=== PATIENT | male | born 1995 | race Two or more races ===

== ENCOUNTER 2024-12-25 00:22 | Emergency (ER) | payer MEDICAID, OTHER ==
[~2024-12-25] VITALS: Ht 188 cm; Wt 127.0 kg
[2024-12-25 00:22] VITALS: BP 163/97; PULSE 102; RESP 16; O2SAT 98
[2024-12-25] MEDS ORDERED: LIDOCAINE VISCOUS 2% 15ML UD PO ONE (00:45)
[2024-12-25] MEDS ORDERED: MAALOX PLUS or MAALOX 30 ML PO ONE (00:45)
--- NOTE | 2024-12-25 02:47 | ED.PDOC ---
Eye-HPI HPI Comments This patient is a 29-year-old male who arrives to the ED today via EMS with the complaints of upper chest pain/throat concerns. Patient states that he has a tightness and a burning sensation to the area. Patient denies any fever nausea or vomiting. Patient was hypertensive and tachycardic at arrival. Patient has a history of methamphetamine use. Chief Complaint: Sore Throat Time Seen by MD: 00:25 Reviewed Notes: Nurses Notes, Water Server Notes Information Source: Patient, Emergency Med Personnel Mode of Arrival: EMS Timing: Hours Duration: Since onset Quality: Pain, FB sensation Onset: Spontaneous Past Medical History PAST MEDICAL HISTORY: Denies Surgical History: Denies all surgeries Family History Family History: Reviewed,noncontributory to illness, No family hx of Cancer, No family hx of DM, No family hx of Heart akua, No family hx of HTN, No family hx ofKidney akua, No family hx of Liver akua, No family hx of Lung akua, No family hx of Stroke Social History Smoker: Non-Smoker Alcohol: Denies ETOH Use Drugs: Denies Drug Use Lives In: Home Constitutional: denies: chills, diaphoresis, fatigue, fever, malaise, sweats, weakness, others EENTM: reports: throat pain; denies: blurred vision, double vision, ear bleeding, ear discharge, ear drainage, ear pain, ear ringing, eye pain, eye redness, hearing loss, mouth pain, mouth swelling, nasal discharge, nose bleeding, nose congestion, nose pain, photophobia, tearing, throat swelling, voice changes, others Respiratory: denies: cough, hemoptysis, orthopnea, SOB at rest, shortness of breath, SOB with excertion, stridor, wheezing, others Cardiovascular: reports: chest pain (Upper); denies: dizzy spells, diaphoresis, Dyspnea on exertion, edema, irregular heart beat, left arm pain, lightheadedness, palpitations, PND, syncope, others Gastrointestinal: denies: abdomen distended, abdominal pain, blood streaked bowels, constipated, diarrhea, dysphagia, difficulty swallowing, hematemesis, melena, nausea, poor appetite, poor fluid intake, rectal bleeding, rectal pain, vomiting, others Genitourinary: denies: burning, dysuria, flank pain, frequency, hematuria, incontinence, penile discharge, penile sore, pain, testicle pain, testicle swelling, urgency, others Neurological: denies: dizziness, fainting, headache, left sided numbness, left sided weakness, numbness, paresthesia, pre-existing deficit, right sided numbness, right sided weakness, seizure, speech problems, tingling, tremors, weakness, others Musculoskeletal: denies: back pain, gout, joint pain, joint swelling, muscle pain, muscle stiffness, neck pain, others Integumetry: denies: bruises, change in color, change in hair/nails, dryness, laceration, lesions, lumps, rash, wounds, others Allergic/Immunocompromised: denies: Difficulty Healing, Frequent Infections, Hives, Itching, others Hematologic/Lymphatic: denies: anemia, blood clots, easy bleeding, easy bruising, swollen glands, others Endocrine: denies: excessive hunger, excessive sweating, excessive thirst, excessive urination, flushing, intolerance to cold, intolerance to heat, unexplained weight gain, unexplained weight loss, others Psychiatric: denies: anxiety, bipolar disorder, depression, hopeless, panic disorder, schizophrenia, sleepless, suicidal, others Physical Exam General Appearance: Mild Distress (Moderate distress due to upper chest/throat pain concerns.), Normal HEENT: Normal ENT Inspection, Pharynx Normal, TMs Normal, Other (Unremarkable oropharyngeal evaluation. No signs of edema or airway compromise. No exudate noted.) Neck: Other (Unremarkable neck evaluation. No signs of masses. Trachea is midline.) Respiratory: Lungs Clear, No Accessory Muscle Use, No Respiratory Distress, Normal Breath Sounds, Other (Patient complains of pain in his upper sternal region, but unable to elicit any additional pain on palpation.) Cardiovascular: No Edema, No JVD, No Murmur, No Gallop, Normal Peripheral Pulses, Regular Rate/Rhythm Breast Exam: Deferred Gastrointestinal: No Organomegaly, Non Tender, No Pulsatile Mass, Normal Bowel Sounds, Soft Genitalia: Deferred Pelvic: Deferred Rectal: Deferred Extremities: No calf tenderness, Normal capillary refill, Normal inspection, Normal range of motion, Non-tender, No pedal edema Neurologic: Alert, No Motor Deficits, Normal Affect, Normal Mood, No Sensory Deficits Cerebellar Function: Normal Reflexes: Normal Skin: Dry, Normal Color, Warm Lymphatic: No Adenopathy Was a procedure done? Was a procedure done?: No EENT DIFF Eye: N/A Sore Throat: Viral Pharyngitis, URI, Other (Pneumonia, esophageal mass) X-Ray, Labs, Meds, VS Vital Signs Date Time Temp Pulse Resp B/P (MAP) Pulse Ox O2 Delivery O2 Flow Rate FiO2 12/25/24 00:22 98.1 102 16 163/97 (119) 98 X-Ray, Labs, Meds, VS Comment Imaging attempted multiple times to locate the patient, but it appears the patient has eloped from the facility. Time of 1ST Reevaluation: 02:46 Reevaluation 1ST: Unchanged Consultation: PCP Patient Education/Counseling: Diagnosis, Treatment Family Education/Counseling: Diagnosis, Treatment Departure 1 Departure Time of Disposition: 02:46 Impression: Primary Impression: Throat pain Disposition: 07 LEFT AWOL/ELOPED Condition: Fair Discharged With: Self Critical Care Note Critical Care Time?: No Stability Stability form required: No Heart Score Heart Score: Heart Score Response (Comments) Value History N/A 0 EKG N/A 0 Age N/A 0 Risk Factors N/A 0 Troponin N/A 0 Total 0 AILEEN ESPOSITO PAC Dec 25, 2024 02:47
== END 2024-12-25 02:47 | disposition left against medical advice (07) ==
LOC: ER 00:22 → EDBD 00:22 → ER 02:47
DX: R07.0 Pain in throat (principal)

== ENCOUNTER 2025-09-03 17:25 | Emergency (ER) | payer MEDICAID ==
[~2025-09-03] VITALS: Ht 185.4 cm; Wt 59.5 kg
[2025-09-03 18:58] LABS: Hematocrit 48.5 % (41.0-53.0); Hemoglobin 16.4 g/dL (13.5-17.5); Mean Corpuscular Hemoglobin 28.4 pg (28.0-32.0); Mean Corpuscular Volume 84.3 fL (80.0-100.0); Nucleated Red Blood Cells % 0.0 %
[2025-09-03 19:08] LABS: Alanine Aminotransferase 13 U/L (7-40); Anion Gap 10 (5-15); BUN/Creatinine Ratio 17.5 (10.0-20.0); Blood Urea Nitrogen 17 mg/dL (9-23); Calcium 10.4 mg/dL (8.7-10.4); Carbon Dioxide 23 mmol/L (20-31); Chloride 105 mmol/L (98-107); Glucose 97 mg/dL (74-106); Lipase 26 U/L (12-53); Potassium 4.4 mmol/L (3.5-5.1); Sodium 138 mmol/L (136-145); Total Protein 7.9 g/dL (5.7-8.2)
[2025-09-03 19:09] LABS: Bilirubin, Total 0.6 mg/dL (0.2-1.0)
[2025-09-03 19:18] LABS: Albumin 5.0 g/dL (3.2-4.8); Alkaline Phosphatase 135 U/L (46-116)
[2025-09-03] MEDS: SODIUM CHLORIDE 0.9% 1,000 ML IV ONE (19:19)
--- NOTE | 2025-09-03 19:20 | DVH ---
Exam: CT CT AB PEL WO CON-NO ORAL OR IV History: abd pain diarrhea Comparison Study: None TECHNIQUE: Multidetector CT of the abdomen AND PELVIS without contrast. Axial, coronal and sagittal multiplanar reformats were obtained from the axial data set by the technologist. Radiation Dose Information: CT Dose: CTDI volume is 19.11 mGy. Dose-length product is 1244.31 mGy*cm FINDINGS: The lung bases are clear. Partially visualized heart is unremarkable. Liver, spleen, gallbladder, pancreas and adrenal glands are unremarkable. Kidneys, ureters and urinary bladder are unremarkable. Prostate is unremarkable. Stomach is unremarkable. Small bowel loops unremarkable. Small nonobstructing appendicolith within t he appendix. Otherwise, the appendix is unremarkable. Moderate to large amount of liquid stool and g as within the colon with air-fluid levels within the Distended rectum measuring up to 9.2 x 8.7 cm. Segmental decompression of the distal descending colon/proximal sigmoid may be from normal peristalsi s. No evidence of intraperitoneal free air or free fluid. No evidence of aortic aneurysm. Shotty mesenteric lymph nodes. The soft tissues unremarkable. No evidence of acute osseous abnormalities. IMPRESSION: Moderate to large amount of gas and liquid stool within the colon consistent with diarrheal state wit h air-fluid level within the distended rectum measuring up to 9.2 x 8.7 cm.
[2025-09-03 19:22] LABS: Urine Protein, UAD 1+ (Negative)
--- NOTE | 2025-09-03 19:24 | ED.PDOC ---
GI ASSESSMENT HPI Comments 30-year-old homeless male presents with c/c of nonradiating and nonspecific, lower abdominal pain. He describes pain as cramping in quality. Patient has associated nausea without vomiting and watery-brown diarrhea. At time of assessment, he denies having any current pain alongside any additional associated symptoms. HPI: Poor Historian. 30-year-old male homeless presents to emergency department for two day history of lower abdominal pain cramps like nonspecific. Patient has a associated nausea and brown watery diarrhea. Patient states that currently has no abdomin al pain. Denies any other symptoms. Past Medical History: Denies any Past Surgical History: Denies any No known drug allergy REVIEW OF SYSTEMS: CONSTITUTIONAL: Denies acute: fever, diaphoresis, chills, generalized weakness. HEAD: Denies acute: headache, photophobia Eyes: Denies acute: Double vision, vision loss, eye pain, eye discharge. EARS: Denies acute: tinnitus, hearing loss, ear discharge, ear pain, THROAT: Denies acute: sore throat, swelling, difficulty swallowing , pain with swallowin g, change in voice. NECK: Denies acute: neck pain, neck swelling, stiff neck. HEART: Denies acute : chest pain, palpitations, LUNGS: Denies acute: SOB, wheezing, cough, hemoptysis ABDOMEN: Denies acute: Vomiting, melena , hematemesis, hematochezia SKIN: Denies acute: rash, redness, lesions, itchiness. EXTREMITIES: Denies acute: calf pain, numbness, tingling, weakness, denies pain in extremity. Denies acute: Low back pain. Neuro: Denies acute: focal neurological deficit, motor or sensory focal neurological deficit, tremors, seizure like activity, confusion, dizziness, change in mental status, loss of bowel or bladder function, cauda equina like symptoms. : Denies acute: dysuria, hematuria, flank pain, increase in urinary frequency. PSYCH: Denies acute: hallucination, suicidal ideation, homicidal ideation. PHYSICAL EXAM: General: -----no---acute distress, awake and alert. Head: normocephalic, atraumatic. No raccoon's eyes, no grove sign. Neck: supple, trachea is midline, no swelling. Throat: Normal phonation. Eyes:, no erythema, no purulent discharge, no proptosis, no icterus. Heart: regular rate, regular rhythm, no significant murmur appreciated. Lungs: no apparent respiratory distress, Able to speak in full sentences. No wheezing, no rhonchi, no crackles. No stridors Clear to auscultation bilaterally. Abdomen: non tender to palpation, non distended, soft, no guarding, no rebound, + bowel sounds. Neuro: Awake, Alert, oriented to name, self, situation, follows commands GCS=15. Speech is normal. Skin: no petechia, no purpura, no cyanosis, non-pale, not jaundice. Lower extremities: --no - Pitting edema no deformity, no focal swelling, no calf TTP. Makes eye contact. moves all four extremities. Face: no apparent facial droop. Ambulating in the ED independently. ED COURSE: DISCLAIMER: This medical document was created using an electronic medical record system with voice recognition software and computerized dictation system. Although this document has been carefully reviewed, there might still be some phonetic and typographical errors. Occasional wrong-word or "sound-alike" substitutions may have occurred due to the inherent limitations of voice recognition software. These areas are purely typographical due to imperfections of the software programs and do not reflect any compromise in the patient's medical care. Please read the chart carefully and recognize, using context, where these substitutions have occurred. Chief Complaint: Diarrhea Time Seen by MD: 18:13 Reviewed Notes: Allergies Allergies: Coded Allergies: NO KNOWN ALLERGIES (Unverified , 09/03/25) Home Meds Active Scripts Ciprofloxacin Hcl (Cipro) 500 Mg Tab, 500 MG PO BID for 7 Days, #14 CAP Prov:NORMA QUINTERO DO 09/03/25 Information Source: Patient Mode of Arrival: EMS Past Medical History PAST MEDICAL HISTORY: Denies Surgical History: Denies all surgeries Family History Family History: Reviewed,noncontributory to illness, No family hx of Cancer, No family hx of DM, No family hx of Heart akua, No family hx of HTN, No family hx ofKidney akua, No family hx of Liver akua, No family hx of Lung akua, No family hx of Stroke Social History Smoker: Non-Smoker Alcohol: Denies ETOH Use Drugs: Denies Drug Use Lives In: Home Was a procedure done? Was a procedure done?: No GI differential Dx Differential Diagnosis: Hepatitis, Food Poisoning, Bacterial, Parasitic, Viral, Other (DDX include but not limited to diverticulitis, colitis, gastroenteritis, acute abdomen, SBO, enteritis, constipation, volvulus, appendicitis, Gallbladder disease, choledocolithiasis, ascending cholangitis, pancreatitis, intraAbdominal mass/neoplasm, hepatitis, UTI, pylonephritis, kidney stone, aneurysm, dissection, Inflammatory bowel disease, gastroparesis, ischemic bowel.Food poisoning, bacterial/parasitic/viral etiology, trauma, diabetes DKA,) X-Ray, Labs, Meds, VS Vital Signs Date Time Temp Pulse Resp B/P (MAP) Pulse Ox O2 Delivery O2 Flow Rate FiO2 09/03/25 22:24 82 17 98 Room Air* 0 21 09/03/25 20:39 97.2 99 18 141/92 (108) 100 97.2 09/03/25 17:50 98.2 103 16 111/70 96 98.2 Lab Test 09/03/25 18:31 09/03/25 18:21 Range/Units White Blood Count 7.9 4.4-10.8 10^3/uL Red Blood Count 5.76 4.5-5.90 10^6/uL Hemoglobin 16.4 13.5-17.5 g/dL Hematocrit 48.5 41.0-53.0 % Mean Corpuscular Volume 84.3 80.0-100.0 fL Mean Corpuscular Hemoglobin 28.4 28.0-32.0 pg Mean Corpuscular Hemoglobin Concent 33.7 32.0-36.0 g/dL Red Cell Distribution Width 13.8 11.8-14.3 % Platelet Count 329 140-450 10^3/uL Mean Platelet Volume 8.0 6.9-10.8 fL Neutrophils (%) (Auto) 70.9 37.0-80.0 % Lymphocytes (%) (Auto) 12.9 10.0-50.0 % Monocytes (%) (Auto) 14.8 H 0.0-12.0 % Eosinophils (%) (Auto) 1.2 0.0-7.0 % Basophils (%) (Auto) 0.2 0.0-2.0 % Neutrophils # (Auto) 5.6 1.6-8.6 10 ^3/uL Lymphocytes # (Auto) 1.0 0.4-5.4 10 ^3/uL Monocytes # (Auto) 1.2 0-1.3 10 ^3/uL Eosinophils # (Auto) 0.1 0-0.8 10 ^3/uL Basophils # (Auto) 0 0-0.2 10 ^3/uL Nucleated Red Blood Cells 0.0 % Sodium Level 138 136-145 mmol/L Potassium Level 4.4 3.5-5.1 mmol/L Chloride Level 105 98-107 mmol/L Carbon Dioxide Level 23 20-31 mmol/L Anion Gap 10 5-15 Blood Urea Nitrogen 17 9-23 mg/dL Creatinine 0.97 0.700-1.30 mg/dL Glomerular Filtration Rate Calc 107 >90 mL/min BUN/Creatinine Ratio 17.5 10.0-20.0 Serum Glucose 97 74-106 mg/dL Lactic Acid Level 1.0 0.4-2.0 mmol/L Calcium Level 10.4 8.7-10.4 mg/dL Total Bilirubin 0.6 0.2-1.0 mg/dL Aspartate Amino Transferase (AST) 12 L 13-40 U/L Alanine Aminotransferase (ALT) 13 7-40 U/L Alkaline Phosphatase 135 H 46-116 U/L Total Protein 7.9 5.7-8.2 g/dL Albumin 5.0 H 3.2-4.8 g/dL Lipase 26 12-53 U/L Urine Color Yellow Yellow Urine Clarity Clear Clear Urine pH 6.0 5.0-9.0 Urine Specific [place] 1.036 H 1.001-1.035 Urine Protein 1+ H Negative Urine Ketones Trace Negative Urine Blood Negative Negative /uL Urine Nitrite Negative Negative Urine Bilirubin Negative Negative Urine Urobilinogen Normal Negative mg/dL Urine Leukocyte Esterase Negative Negative /uL Urine RBC 1 0 - 3 /hpf Urine Microscopic WBC 1 0-3 /HPF Urine Squamous Epithelial Cells Few <5 /hpf Urine Bacteria Few H None Seen /hpf Urine Hyaline Casts Mod 0 - 2 /lpf Urine Mucus Few None Seen Urine Glucose Normal Normal mg/dL Current Medications Medications (Trade) Dose Ordered Sig/Niles Route Start Time Stop Time Status Last Admin Sodium Chloride 1,000 ml @ 1,000 mls/hr Q1H ONCE IV 09/03/25 18:30 09/03/25 19:29 DC 09/03/25 19:19 [place] [address] Ph: [phone] DIAGNOSTIC IMAGING Diagnostic Imaging Report : [id number] Signed PATIENT: ELAN CATALAN ACCT: [id number] UNIT: [id number] : 1995 LOC: ER ROOM / BED: / AGE / SEX: 30 / M ADM STATUS: REG ER SERVICE 17 ORDERING PHYSICIAN: NORMA QUINTERO DO PROCEDURE(s): ABPL - CT AB PEL WO CON-NO ORAL OR IV REASON: abd pain diarrhea ORDER NUMBER(s): [id number], ACCESSION NUMBER(s): [id number] Exam: CT CT AB PEL WO CON-NO ORAL OR IV History: abd pain diarrhea Comparison Study: None TECHNIQUE: Multidetector CT of the abdomen AND PELVIS without contrast. Axial, coronal and sagittal multiplanar reformats were obtained from the axial data set by the technologist. Radiation Dose Information: CT Dose: CTDI volume is 19.11 mGy. Dose-length product is 1244.31 mGy*cm FINDINGS: The lung bases are clear. Partially visualized heart is unremarkable. Liver, spleen, gallbladder, pancreas and adrenal glands are unremarkable. Kidneys, ureters and urinary bladder are unremarkable. Prostate is unremarkable. Stomach is unremarkable. Small bowel loops unremarkable. Small nonobstructing appendicolith within the appendix. Otherwise, the appendix is unremarkable. Moderate to large amount of liquid stool and gas within the colon with air-fluid levels within the Distended rectum measuring up to 9.2 x 8.7 cm. Segmental decompression of the distal descending colon/proximal sigmoid may be from normal peristalsis. No evidence of intraperitoneal free air or free fluid. No evidence of aortic aneurysm. Shotty mesenteric lymph nodes. The soft tissues unremarkable. No evidence of acute osseous abnormalities. IMPRESSION: Moderate to large amount of gas and liquid stool within the colon consistent with diarrheal state with air-fluid level within the distended rectum measuring up to 9.2 x 8.7 cm. ATED BY: AYSE DOUGLAS DO DICTATED DATE/TIME: 09/03/251916 SIGNED BY: STELLA AYSE Agustin ORNELAS SIGNED DATE/TIME: 09/03/251916 CC: Time of 1ST Reevaluation: 18:13 Reevaluation 1ST: Unchanged Patient Education/Counseling: Diagnosis, Treatment Family Education/Counseling: No Family Present Comments MDM: patient presented with the above HPI.--abdominal pain/diarrhea----workup was initiated. patient was found with the above mentioned diagnosis. the following medications were ordered: please refer to order lists of meds and tests obtained by myself Dr. Quintero. Patient ED course and VS have been stabilized. Patient has been reassessed in the ED and remained in a stable condition. Pertinent incidental findings were discussed with the patient and/or family. Patient/family voices understanding and is agreeable with plan. Patient has been observed in the ED adequate length of time to insure improvement/stability. Escalation of care considered: Consideration of escalation to observation or admission Patient is homeless Patient was unable to give us a stool sample. Given the severe diarrhea state on CT scan, I will start the patient on Cipro with suspected likely infectious diarrhea Patient was DISCHARGED home in a stable condition. All the reports of any imaging studies that were ordered by myself were reviewed by myself. SEPSIS Sepsis Screen Date sepsis recognized/suspect: Sep 03, 2025 Time Sepsis recognized/suspect: 1729 Recent Procedure: No On Antibiotic Therapy: No Respiratory Rate >20: No Heart Rate >90: Yes Temp<36 C (96.8 F) or >38.3 C: No SBP <90 or MAP <65 mmHG: No New Acute Mental Status Change: No Is the patient on CPAP, BIPAP,: No Physician Orders Rotoprinter (09/03/25 ) Ct Ab Pel Wo Con-No Oral Or Iv (09/03/25 18:18) Vital Signs Date Time Temp Pulse Resp B/P (MAP) Pulse Ox O2 Delivery O2 Flow Rate FiO2 09/03/25 22:24 82 17 98 Room Air* 0 21 09/03/25 20:39 97.2 99 18 141/92 (108) 100 97.2 09/03/25 17:50 98.2 103 16 111/70 96 98.2 Laboratory Tests Test 09/03/25 18:31 Lactic Acid Level 1.0 mmol/L (0.4-2.0) White Blood Count 7.9 10^3/uL (4.4-10.8) Medications Medications Dose Ordered Sig/Niles Route Start Time Stop Time Status Last Admin Dose Admin Sodium Chloride 1,000 ml @ 1,000 mls/hr Q1H ONCE IV 09/03/25 18:30 09/03/25 19:29 DC 09/03/25 19:19 Departure 1 Departure Time of Disposition: 20:55 Impression: Primary Impression: Diarrhea Disposition: 01 HOME / SELF CARE / HOMELESS Condition: Stable Additional Instructions: Additional instructions: Please read all instructions provided in this packet carefully. You MUST follow-up with your primary care/family doctor in 1 to 2 days. If you are unable to see your primary care/family doctor, please return to our emergency room for re-assessment and re-evaluation in 1 to 2 days. Return to the emergency room here in our facility or to the nearest ER [facility] if your symptoms change or worsen. CONSULTATIONS: you MUST Follow-up for consultation as soon as possible with: --gastroenterology in 1-2 days. Please call for appointment You MUST call the consultants office yourself to make an appointment. You may need to arrange that through your insurance and/or your primary/family doctor. If you are unable to see the sharepoint consultant in 1 to 2 days, you must return to our emergency room (or any other ER of your choice) for re-assessment and re- evaluation. Adequate fluid hydration. Although you have been discharged from the Emergency Department, this does not mean that you have a "clean bill of health". No definitive diagnosis for your symptoms has been made today. It is possible that you are in the process of developing a serious illness. This is why you must return to the ED without fail if any new or worsening symptoms develop. Below is a copy of your radiological report for follow up: [address] [address] Ph: [phone] DIAGNOSTIC IMAGING Diagnostic Imaging Report : [id number] Signed PATIENT: ELAN CATALAN ACCT: [id number] UNIT: [id number] : 1995 LOC: ER ROOM / BED: / AGE / SEX: 30 / M ADM STATUS: REG ER SERVICE 17 ORDERING PHYSICIAN: NORMA QUINTERO DO PROCEDURE(s): ABPL - CT AB PEL WO CON-NO ORAL OR IV REASON: abd pain diarrhea ORDER NUMBER(s): [id number], ACCESSION NUMBER(s): [id number] Exam: CT CT AB PEL WO CON-NO ORAL OR IV History: abd pain diarrhea Comparison Study: None TECHNIQUE: Multidetector CT of the abdomen AND PELVIS without contrast. Axial, coronal and sagittal multiplanar reformats were obtained from the axial data set by the technologist. Radiation Dose Information: CT Dose: CTDI volume is 19.11 mGy. Dose-length product is 1244.31 mGy*cm FINDINGS: The lung bases are clear. Partially visualized heart is unremarkable. Liver, spleen, gallbladder, pancreas and adrenal glands are unremarkable. Kidneys, ureters and urinary bladder are unremarkable. Prostate is unremarkable. Stomach is unremarkable. Small bowel loops unremarkable. Small nonobstructing appendicolith within the appendix. Otherwise, the appendix is unremarkable. Moderate to large amount of liquid stool and gas within the colon with air-fluid levels within the Distended rectum measuring up to 9.2 x 8.7 cm. Segmental decompression of the distal descending colon/proximal sigmoid may be from normal peristalsis. No evidence of intraperitoneal free air or free fluid. No evidence of aortic aneurysm. Shotty mesenteric lymph nodes. The soft tissues unremarkable. No evidence of acute osseous abnormalities. IMPRESSION: Moderate to large amount of gas and liquid stool within the colon consistent with diarrheal state with air-fluid level within the distended rectum measuring up to 9.2 x 8.7 cm. ATED BY: AYSE DOUGLAS DO DICTATED DATE/TIME: 09/03/251916 SIGNED BY: AYSE DOUGLAS DO SIGNED DATE/TIME: 09/03/251916 CC: e-Prescriptions Ciprofloxacin Hcl (Cipro) 500 Mg Tab 500 MG PO BID for 7 Days, #14 CAP Prov: NORMA QUINTERO DO 09/03/25 Discharged With: Self Critical Care Note Critical Care Time?: No I personally scribed for NORMA QUINTERO DO ([email or web address]) on 09/03/25 at 19:24. Electronically submitted by Jeffrey Wen ([email or web address]). I personally scribed for NORMA QUINTERO DO ([email or web address]) on 09/03/25 at 20:06. Electronically submitted by Jeffrey Wen [email or web address]). NORMA QUINTERO DO Sep 03, 2025 19:24
[2025-09-03 20:39] VITALS: BP 141/92; TEMP 97.2
[2025-09-03] MEDS ORDERED: CIPR-173 PO (21:00)
[2025-09-03 22:24] VITALS: PULSE 82; RESP 17; O2SAT 98
== END 2025-09-03 22:30 | disposition home or self-care (01) ==
LOC: EDBD 17:25 → ER 17:35
DX: R19.7 Diarrhea, unspecified (principal); Z79.899 Other long term (current) drug therapy
CPT/HCPCS: 36415; 74176; 80053; 81001; 83605; 83690; 85025; 96360; 99284; J7030